=== PATIENT | male | born 1995 | race Caucasian/White ===

== ENCOUNTER 2022-12-28 13:11 | Emergency (ER) | payer BC, SELFPAY ==
[2022-12-28 13:11] VITALS: BP 143/105; PULSE 85; RESP 18; TEMP 36.1; O2SAT 97; BMI 31.7
--- NOTE | 2022-12-28 13:37 | ED.VIS.GI ---
HPI HPI - GI History of Present Illness Chief Complaint: Abd Pain Detail of Chief Complaint: Nausea, vomiting and diarrhea. Informant: patient Abdominal Pain/Flank Pain Onset: Days Context: Gradual Onset Timing: Continuous Current Severity: Mild Maximum Severity: Mild Nausea/Vomiting/Emesis GI Symptom: Positive for Nausea and Vomiting Onset: Days Severity: Mild Diarrhea/Melena/Hematochezia GI Symptom: Positive for Diarrhea and - (Small bright red blood streaks. Prior similar history.) Onset: Days Stool Quality: Positive for Loose Severity: Mild Associated Symptoms Associated Symptoms: Negative for Dysuria, Frequency, Hematuria or Urgency Narrative Narrative: 27-year-old male past medical history of reflux on omeprazole. States the last week he has had nausea, vomiting and diarrhea. He is able to hold food liquids down. Denies any fever. Thought initially he had food poisoning but when it continued he thought it may be something else. He has had episodes like this before. He is never had any significant GI work-up. He has never had upper or lower endoscopy. He has had bright red blood in his stool before. He is on no blood thinners. He has had no bruising or hematuria. No bloody nose. Prior similar symptoms: Yes Recent Illness/Hospitalization: No PFSH PFSH Medical History Anxiety GERD (gastroesophageal reflux disease) Seasonal allergies Home Medications fluoxetine 40 mg capsule mg 12/28/22 [History Last Taken Unknown] levocetirizine 5 mg tablet mg 12/28/22 [History Last Taken Unknown] omeprazole 40 mg capsule,delayed release mg 12/28/22 [History Last Taken Unknown] Allergy/AdvReac Type Severity Reaction Status Date / Time amoxicillin [From Augmentin] AdvReac Upset Verified 12/28/22 13:14 Stomach cefaclor [From Ceclor] AdvReac Upset Verified 12/28/22 13:14 Stomach clavulanic acid AdvReac Upset Verified 12/28/22 13:14 [From Augmentin] Stomach Social History Smoking Status: Former smoker ROS ROS ED ROS Narrative Nausea, vomiting and diarrhea. Review of Systems ROS Unobtainable: Denies due to encephalopathy Constitutional Constitutional ED: Denies chills or fever(s) ENT ENT ED: Denies ear pain Cardiovascular Cardiovascular: Denies chest pain Respiratory/Chest Respiratory/Chest: Denies cough or dyspnea Gastrointestinal Gastrointestinal: Reports diarrhea, nausea and vomiting; Denies abdominal pain, constipation or melena Genitourinary Genitourinary ED: Denies dysuria or hematuria Musculoskeletal Musculoskeletal: Denies arthralgias or back pain Integumentary Denies abscess or Abrasions Neurologic Neurologic: Denies headache(s) Psychiatric Psychiatric: Denies anxiety Endocrine Endocrinology: Denies polydipsia Hematologic/Lymphatic Hematologic/Lymphatic: Denies easy bleeding or easy bruising Allergic/Immunologic Allergic/Immunologic ED: Denies mouth swelling or tongue swelling EXAM Physical Exam Narrative Exam Narrative: 27-year-old male no acute distress. Vital signs stable afebrile. He does not look septic and nontoxic. He does not look dehydrated. H EENT exam unremarkable. Moist mucous members. Neck nontender no lymphadenopathy. Lungs clear to auscultation bilaterally. Heart regular rhythm rate about 80 no murmur. Abdomen soft, nontender, nondistended, normal bowel sounds, no peritoneal signs. No hernia nor mass. No distention. He is completely nontender at this time. Moving all 4 extremities. Nontender no edema. Back normal. Neurologic exam awake alert no focal motor deficits. Very benign exam. Const Vital Signs: 12/28/22 13:11 Temperature 97.0 F L Temperature Source Temporal Pulse Rate 85 Respiratory Rate 18 Blood Pressure 143/105 H Blood Pressure Mean 117 Pulse Ox 97 Oxygen Delivery Method Room Air Positive well nourished and well developed; Negative for cachectic, contractures or unkempt General Appearance ED: well developed and NAD; Negative for unkempt, cachectic, contractures or pallor Nutritional Appearance: Negative for cachectic HEENT Reports moist mucous membranes; Denies dry mucous membranes normocephalic and atraumatic; Negative for trauma or tenderness Mouth ED: No dry mucous membranes Mouth: No dry mucous membranes Eyes PERRL and EOMs intact bilaterally General Eye ED: Negative for pale conjunctiva, scleral icterus or other Neck no lymphadenopathy, supple and no JVD General: Negative for tenderness Carotids: Negative for other Lymph Lymphatic: Negative for other Resp normal respiratory effort and clear to auscultation bilaterally Effort and Inspection: Negative for respiratory distress, retractions or pain with movement Auscultation: Negative for rales, rhonchi or wheezes Cardio regular rate, regular rhythm, S1 normal heart sound, S2 normal heart sound and no murmurs Rate: Negative for bradycardia or tachycardic Rhythm: Negative for abnormal rhythm GI non-tender, non-distended and no masses Inspection: Negative for abdominal distention Auscultation: normoactive bowel sounds Palpation: soft; Negative for tender, guarding, rigid, hepatomegaly, splenomegaly, hernia, mass, pulsatile mass or rebound tenderness present Back/Spine no CVA tenderness General Back: Negative for CVA tenderness Cervical Spine: Negative for cervical spine tenderness Thoracic Spine / Upper Back: Negative for thoracic spinal tenderness Lumbar Spine / Lower Back: Negative for lumbar spinal tenderness Coccyx: Negative for other Extremity General Extremety ED: Negative for edema or tenderness General Extremity: Negative for edema Neuro CN's II-XII intact bilaterally and moves all extremities Sensorium / Orientation: alert, oriented to person, oriented to place and oriented to time; Negative for orientation impaired, confused, lethargic or stuporous Motor Exam: strength 5/5 throughout Psych mental status grossly normal and thought process normal Appearance: Negative for unkempt Attitude: No agitated Mood & Affect: Negative for depressed, anxious or tearful Skin no wounds General Skin Exam: Negative for jaundice or pallor Lesions: No no lesions Rashes: No no rashes Trauma: Negative for abrasion Nails: Negative for discolored MDM MDM MDM Narrative Medical decision making narrative: 27-year-old male with nausea vomiting diarrhea and intermittent bright red blood mixed with stools. This could be from internal hemorrhoids or polyps. Could be inflammatory bowel disease. We will do screening labs. He is clinically not dehydrated. I gave him a glass of water he is able to drink it does not anything for nausea at this time. Most likely will be discharged home with outpatient follow-up. Repeat exam patient doing well at 2:35 PM. Abdomen benign. He will be discharged home with outpatient follow-up. He continues to have diarrhea and intermittent blood-tinged stool he may need colonoscopy. Lab Data Attestation: I reviewed the patient's lab results. Lab results narrative: CBC unremarkable white count 8.9. H&H of 17.7 and 49. Platelets 280. She is unremarkable gap at 9. Normal BUN and creatinine. Liver enzymes are unremarkable with AST slightly elevated at 50 and ALT is 150. Lipase is normal at 37. Labs: Laboratory Results - last 24 hr 12/28/22 12/28/22 13:40 13:40 WBC 8.9 RBC 6.15 Hgb 17.7 H Hct 49.9 MCV 81.1 MCH 28.8 MCHC 35.5 RDW Std Deviation 35.1 RDW Coeff of Sarah 12.0 Plt Count 280 MPV 9.5 Immature Gran % (Auto) 0.700 Neut % (Auto) 52.6 Lymph % (Auto) 36.3 [place] % (Auto) 7.9 Eos % (Auto) 1.8 Baso % (Auto) 0.7 Absolute Neuts (auto) 4.7 Absolute Lymphs (auto) 3.21 Nucleated RBC % 0 Sodium 137 Potassium 3.8 Chloride 104 Carbon Dioxide 24.0 Anion Gap 9 BUN 15 Creatinine 0.99 Estim Creat Clear Calc 110.10 Est GFR (MDRD) Af Amer 114 Est GFR (MDRD) Non-Af 94 BUN/Creatinine Ratio 15.1 Glucose 93 Calcium 9.4 Total Bilirubin 0.90 AST 50 H ALT 150 H Alkaline Phosphatase 77 Total Protein 7.9 Albumin 4.3 Globulin 3.6 Albumin/Globulin Ratio 1.2 Lipase 37 Discharge Plan Triage Chief Complaint: Abd Pain ED Provider: Braeden Aleman Dx/Rx/DC Orders Clinical Impression: Diarrhea Instructions: ED Diarrhea, Unknown Cause Prescriptions: No Action fluoxetine 40 mg capsule 40 mg PO DAILY Label Comments: TAKE 1 CAPSULE BY MOUTH ONCE DAILY FOR 30 DAYS omeprazole 40 mg capsule,delayed release(DR/EC) 40 mg PO DAILY levocetirizine 5 mg tablet 5 mg PO DAILY Label Comments: TAKE 1 TABLET BY MOUTH EVERY DAY AT BEDTIME FOR 30 DAYS Primary Care Provider: Faisal Kovacs NP Referrals: Antoine Jrarell DO [Med Staff - Active Staff] - 10-14 Days if not better Faisal Kovacs [employer] MANAGER, [employer] MANAGER-C [Primary Care Provider] - 1 Week if not improving Activity Restrictions/Additional Instructions: Plenty of fluids and rest. Follow-up with your primary care provider if not improving If you continue to have diarrhea specifically if you continue to have bloody diarrhea you may need further evaluation by a GI doctor or even a colonoscopy to be evaluated for causes of chronic diarrhea and or bleeding. This could be from internal hemorrhoids, or polyps or even inflammatory bowel disease. He would need further evaluation. Disposition Disposition: Home, Self Care
[2022-12-28 13:50] LABS: Absolute Lymphocyte Count 3.21 X10^3/uL (0.83-4.51); Absolute Neutrophil Count 4.7 X10^3/uL (2.0-7.7); Basophil# 0.06 X10^3/uL; Basophil% 0.7 % (0-1); Eosinophil# 0.16 X10^3/uL; Eosinophils% 1.8 % (0-5); Hematocrit 49.9 % (40-54); Hemoglobin 17.7 g/dL (13.0-16.5); Lymphocyte # 3.21 X10^3/ul (0.83-4.51); Lymphocyte % 36.3 % (19-41); Mean Corp Hgb Conc 35.5 g/dL (32-36); Mean Corpuscular Hgb 28.8 pg (27.0-32.0); Mean Corpuscular Volume 81.1 fL (80-94); Mean Platelet Vol. 9.5 fl (6.2-12.0); Monocyte% 7.9 % (0-10); NRBC Flagged by Analyzer 0 % (0-5); Neutrophil # 4.66 X10^3/uL (2.7-7.7); Neutrophil % 52.6 % (47-70); Platelet Count 280 K/mm3 (150-450); RBC Distribution Width SD 35.1 fl (35.1-43.9); Red Blood Count 6.15 M/mm3 (4.6-6.2); White Blood Count 8.9 K/mm3 (4.4-11.0)
[2022-12-28 14:06] LABS: ALB/GLOB Ratio 1.2 RATIO (0.9-2.4); AST(SGOT) 50 U/L (15-37); Alanine Aminotransfer ALT/SGPT 150 U/L (16-61); Albumin, Serum 4.3 g/dL (3.2-5.0); Alkaline Phosphatase 77 U/L (45-117); Anion Gap 9 (5-15); BUN 15 mg/dL (7-18); BUN/Creat Ratio 15.1 RATIO (10-20); Calcium,Total 9.4 mg/dL (8.5-10.1); Chloride 104 mmol/L (98-107); Creatinine, Serum 0.99 mg/dL (0.70-1.30); EST Glomerular Filtration Rate 94 mL/min (>60); Est Glom Filt Rate - Afr Amer 114 mL/min (>60); Globulin 3.6 g/dL (2.2-4.2); Glucose 93 mg/dL (74-106); Lipase 37 U/L (13-75); Potassium 3.8 mmol/L (3.5-5.1); Protein, Total 7.9 g/dL (6.4-8.2); Sodium Level 137 mmol/L (136-145)
[2022-12-28 15:11] VITALS: RESP 18
== END 2022-12-28 15:13 | disposition home or self-care (01) ==
PROVIDERS: Emergency Provider Emergency Medicine; PCP Nurse Practitioner Family; Visit Provider Emergency Medicine
DX: R19.7 Diarrhea, unspecified (principal); K21.9 Gastro-esophageal reflux disease without esophagitis; Z87.891 Personal history of nicotine dependence; Z79.899 Other long term (current) drug therapy
CPT/HCPCS: 80053; 83690; 85025; 99283

== ENCOUNTER → 2023-04-11 | Outpatient (CLI) | payer BC, SELFPAY ==
--- NOTE | 2023-04-11 07:53 | US_ITS ---
STUDY: ABDOMINAL ULTRASOUND - RIGHT UPPER QUADRANT REASON FOR VISIT: Male, 28 years old elevated lft''s TECHNIQUE: Ultrasound evaluation of the right upper quadrant was performed with real-time and static lane-scale imaging. TECHNICAL QUALITY: Adequate. COMPARISON: None. FINDINGS: Liver: The liver measures 16.9 cm. There is increased echogenicity consistent with fatty infiltration. The bile ducts are within normal limits. There is hepatic color flow. The direction of portal flow is hepatopetal. There is no demonstrated mass lesion. Gallbladder: Normal distended gallbladder. The gallbladder wall measures 3.0 mm. There is a negative sonographic Moya''s sign. There is no pericholecystic fluid. There are no gallstones. Common Bile Duct (C.B.D.): The common bile duct measures 3.0 mm. Pancreas: Normal size of the head, body of the pancreas. The tail portion is obscured due to overlying bowel gas. There is normal echogenicity of the pancreas. There is no demonstrated pancreatic mass or cyst. Right Kidney: Normal size of the right kidney. The right kidney measures 11.5 cm x 6.3 cm x 5.7 cm. Normal renal cortex. The right cortex measures 2.2 cm. There is no demonstrated renal mass or cyst. There is no right hydronephrosis. IMPRESSION: Fatty infiltration of the liver. Electronically Signed: Henrry Govea MD at 16:00 EDT , STUDY: ABDOMINAL ULTRASOUND - ELASTOGRAPHY REASON FOR VISIT: Male, 28 years old. Elevated liver function tests. TECHNIQUE: Liver stiffness measurements were obtained on a Wagon 85 ultrasound machine using a CA 1-7 probe following the SRU guidelines. 3 measurements were obtained using a 2-D-SWE method. TheIQR/M was 13% suggesting a quality data set. TECHNICAL QUALITY: Adequate. COMPARISON: Comparison is made with prior study done earlier in the day. FINDINGS: Liver: There is no demonstrated mass lesion. Median liver stiffness measured 4.5 kPa. Abdomen: There is no demonstrated mass lesion. US/Abdomen Limited IMPRESSION: Liver stiffness measures 4.5 kPa compatible with FO (Normal) Metavir score. Electronically Signed: Henrry Govea MD at 16:01 EDT ,
== END | disposition home or self-care (01) ==
LOC: US 07:53
PROVIDERS: PCP Nurse Practitioner Family; Referring Provider Internal Medicine Gastroenterology; Visit Provider Internal Medicine Gastroenterology
DX: R11.2 Nausea with vomiting, unspecified (principal); R19.7 Diarrhea, unspecified
CPT/HCPCS: 76705; 76981

== ENCOUNTER 2023-05-28 11:31 | Day surgery (SDC) | payer BC, SELFPAY ==
[2023-05-28] VITALS (7 sets, daily range): BP systolic 107–144; BP diastolic 58–86; PULSE 62–68; RESP 16–18; TEMP 36.5–36.9; O2SAT 97–99; BMI 33.5
--- NOTE | 2023-05-28 | COLBX_PTH ---
PATIENT: JOYCE BRISCOE LOC: EN U#:[id number] AGE/SX: 28/M ROOM: RE05/28/[address]: Dr. Antoine Jarrell DO : 1995 BED: DIS: 05/28/2023 SPEC #: [id number] RECD: 05/28/23 15:15 STATUS: [place] KAL #: [id number] SCOTT: 05/28/23 00:[address]: Antoine Jarrell DEPT: SURGICAL PATHOLOGY RECD BY: Jose Luis Jarvis ENTERED: 05/29/23 10:00 SP TYPE: COLON BX OTHR DR: Faisal Kovacs, BLUEPRINT MACHINE OPERATOR-C Tissues: A - Duodenum, NOS B - Esophagus, NOS C - Ileum, NOS D - COLON BIOPSY Procedures: Special Stain Group II Surgery Specimen Level IV Alcian Blue/PAS (control) HEADER OPERATION: Colonoscopy, EGD, biopsy PRE-OP DIAGNOSIS: Nausea, vomiting, diarrhea TISSUE SUBMITTED: A - Duodenum biopsy, B - Distal esophagus biopsy, C - Terminal ileum biopsy, D - Random colonic biopsy MICROSCOPIC DIAGNOSIS A. Duodenum, biopsy: No pathologic change. B. Distal esophagus, biopsy: Gastroesophageal junctional mucosa with mild chronic inflammation. No evidence of goblet cell metaplasia. See comment. C. Terminal ileum, biopsy: No pathologic change. D. Colon, random biopsy: No pathologic change. AM:shemar 05/30/2023 COMMENT B. Alcian blue/PAS stain with matched control supports the above diagnosis. MICROSCOPIC DESCRIPTION Slides are reviewed. GROSS DESCRIPTION A - Received in fixative is one container labeled with the patient's name and designated duodenum biopsy. The specimen consists of two irregular fragments of light aguilar soft tissue that in aggregate measure 0.8 x 0.3 x 0.1 cm. The specimen is totally submitted in one cassette. B - Received in fixative is one container labeled with the patient's name and designated distal esophagus biopsy. The specimen consists of multiple irregular fragments of light aguilar soft tissue that in aggregate measure 1.2 x 0.5 x 0.1 cm. The specimen is totally submitted in one cassette. C - Received in fixative is one container labeled with the patient's name and designated terminal ileum. The specimen consists of two irregular fragments of light aguilar soft tissue that in aggregate measure 1.0 x 0.5 x 0.1 cm. The specimen is totally submitted in one cassette. D - Received in fixative is one container labeled with the patient's name and designated random colon biopsy. The specimen consists of multiple irregular fragments of light aguilar soft tissue that in aggregate measure 2.0 x 1.0 x 0.1 cm. The specimen is totally submitted in one cassette. / AM:shemar 05/29/2023 TC:3 CPT: 91364 x4, 51028
[2023-05-28] MEDS: Lactated Ringers 1,000 ML 15 ML IV (12:19)
--- NOTE | 2023-05-28 13:07 | HP.PCM_ITS ---
History and Physical Date of Admission: 05/28/23 27 M who presents to the office today for a consult. [facility] ED 12.28.22 with N/V/D with blood in stool for the last week with intermittent presentation in the past without GI workup or endoscopy.?Biochemical?CBC, CMP, lipase without pertinent abnormality.?AST H50- ALT H150- AP77? PCP OV 01.03.23 as ED and chronic condition f/u with ADHD, generalized anxiety, GERD with presumptive PUD diagnosis managed with omeprazole 40mg and dicyclomine PRN.? FH- Grandma- stomach cancer Today reports that his symptoms are random and sporadic. States that he has had only one episode of blood in stool since his ED visit. Continues to have nausea and diarrhea. Denies any vomiting. States that he is taking the omeprazole 40 mg QAM and Famotidine QHS and that has been helpful. States that he did not notice a difference with dicyclomine. States that although his symptoms are still there they are not debilitating. States that symptoms are aggravated by spicy food and salads. ROS Const Constitutional: No fatigue, fever(s), frequent falls, headache(s) or weight change ENT ENT: No headache(s) or difficulty swallowing Cardio Cardiology: No leg pain with exertion Gastro GI: Positive for diarrhea and nausea/dyspepsia; No abdominal pain, bloating, change in bowel habits, constipation, heartburn, difficulty swallowing, Vomiting blood/hematemesis, Blood in stool or vomiting Musc Musculoskeletal: No abnormal gait, joint pain, back pain, joint swelling, muscle cramps, muscle weakness, numbness, stiffness, tingling, Arthritis, sciatica, leg pain at night or leg pain with exertion Skin Skin: No dry skin, lesions, itchy eyes or rash Neuro Neurology: No abnormal gait, dizziness, frequent falls, headache(s), numbness, tingling, tremor(s), Increased tone in limbs, paralysis or seizures Psych Psychiatric: No anxiety, No depression, No paranoia, No Behavioral Problems, No Compulsive Behavior, No hyperactivity, No inattentiveness, No obsessions/compulsions, No Temper Tantrums and No suicidal ideation Endo Endocrine: No fatigue or weight change Aller/Imm Allergy/Immunologic: No itchy eyes Poli/Lymp Hematologic/Lymphatic: No easy bleeding or easy bruising Exam Const General: cooperative and comfortable Nutritional Appearance: average body habitus and well nourished [facility] Head: normal to inspection Ears: hearing grossly normal bilaterally Nose: external nose normal Face and sinus: normal facial exam Mouth: oral mucosae normal Throat: posterior oropharynx normal Eyes General: appearance normal, both eyes and all related structures Neck Neck: normal visual inspection Chest Chest palpation & inspection: normal inspection of the chest and normal palpation of entire chest wall Resp Effort & Inspection: normal respiratory effort Auscultation: Bilateral: Clear to Auscultation Cardio Palpation: normal PMI Rate: regular rate Rhythm: regular rhythm GI Inspection: normal to inspection Auscultation: normal bowel sounds Percussion: normal to percussion Palpation: no hepatosplenomegaly Skin General: no rashes or lesions noted Neuro General: patient alert Extrem General: normal to inspection Psych Affect: normal affect Quality Reporting Tobacco Screening ([facility] 138) Smoking Status: Former smoker Assessment and Plan Assessment and Plan (1) Nausea & vomiting: Status: Acute Qualifiers: Vomiting type: unspecified Qualified Code(s): R11.2 - Nausea with vomiting, unspecified (2) Diarrhea: Status: Inactive Qualifiers: Diarrhea type: functional diarrhea Qualified Code(s): K59.1 - Functional diarrhea Plan: 27-year-old gentleman with a several year history of intermittent nausea and abdominal pain. It is progressed to intermittent diarrhea. His weight has been stable. He denies any hematochezia. He does not take any blood thinners. He has no family members with inflammatory bowel disease. He presented to the ED in December 2022 with worsening nausea vomiting. He was noted to have an increased hemoglobin to 17.7. His white blood cell count was normal at 6.3 and his platelet count was normal at 235. He said he used to have a problem with alcohol but he does not drink alcohol anymore. He does also complain of some pain in bilateral knees with consumption of alcohol. Also noted was a increase in AST and ALT on his ER visit. His a ST was 58 and his ALT was 150. He denied any alcohol prior to that visit. His urine was not checked for infection previously. Differential diagnosis does include celiac disease, inflammatory bowel disease, ANCA associated vasculitis, marijuana hyperemesis, gastroparesis. He will undergo an upper and lower endoscopy to evaluate his upper or lower GI tract. He was explained alternatives, risk, benefits including not withstanding bl eeding, infection, sepsis, perforation, need for emergent surgery . He will have an ASA of 2. Orders: Orders Ferritin Today R11.2 - Nausea with vomiting, unspecified, R19.7 - Diarrhea, unspecified Haptoglobin Today R11.2 - Nausea with vomiting, unspecified, R19.7 - Diarrhea, unspecified Retic Panel Count Today R11.2 - Nausea with vomiting, unspecified, R19.7 - Diarrhea, unspecified MONICA + Protein Elect, Serum Today R11.2 - Nausea with vomiting, unspecified, R19.7 - Diarrhea, unspecified Iron Binding Capacity,Total Today R11.2 - Nausea with vomiting, unspecified, R19.7 - Diarrhea, unspecified Iron Today R11.2 - Nausea with vomiting, unspecified, R19.7 - Diarrhea, unspecified LDH Today R11.2 - Nausea with vomiting, unspecified, R19.7 - Diarrhea, unspecified CBC W/Diff, Automated Today R11.2 - Nausea with vomiting, unspecified, R19.7 - Diarrhea, unspecified ANCA Today R11.2 - Nausea with vomiting, unspecified, R19.7 - Diarrhea, unspecified Celiac Disease Profile Today R11.2 - Nausea with vomiting, unspecified, R19.7 - Diarrhea, unspecified Comprehensive Metabolic Profil Today R11.2 - Nausea with vomiting, unspecified, R19.7 - Diarrhea, unspecified CRP Today R11.2 - Nausea with vomiting, unspecified, R19.7 - Diarrhea, unspecified Erythrocyte Sed Rate Today R11.2 - Nausea with vomiting, unspecified, R19.7 - Diarrhea, unspecified Immunoglobulin A Today R11.2 - Nausea with vomiting, unspecified, R19.7 - Diarrhea, unspecified Immunoglobulin E Today R11.2 - Nausea with vomiting, unspecified, R19.7 - Diarrhea, unspecified Immunoglobulin G Today R11.2 - Nausea with vomiting, unspecified, R19.7 - Diarrhea, unspecified Immunoglobulin M Today R11.2 - Nausea with vomiting, unspecified, R19.7 - Diarrhea, unspecified Miscellaneous Lab Procedure Today R11.2 - Nausea with vomiting, unspecified, R19.7 - Diarrhea, unspecified Amylase Today R11.2 - Nausea with vomiting, unspecified, R19.7 - Diarrhea, unspecified Lipase Today R11.2 - Nausea with vomiting, unspecified, R19.7 - Diarrhea, unspecified JULIETH Comprehensive Panel Today R11.2 - Nausea with vomiting, unspecified, R19.7 - Diarrhea, unspecified Prothrombin Time w/INR Today R11.2 - Nausea with vomiting, unspecified, R19.7 - Diarrhea, unspecified Abdomen Limited Today R11.2 - Nausea with vomiting, unspecified, R19.7 - Diarrhea, unspecified Elastography Parenchyma/Organ Today R11.2 - Nausea with vomiting, unspecified, R19.7 - Diarrhea, unspecified Anti-Smooth Muscle ABS Today R11.2 - Nausea with vomiting, unspecified Anti-Mitochondrial AB Today R11.2 - Nausea with vomiting, unspecified Hepatitis Panel Acute Today R11.2 - Nausea with vomiting, unspecified CPK Total, Creatine Kinase Today R11.2 - Nausea with vomiting, unspecified I have examined the patient and the H&P has been reviewed. There are no clinical changes since date of exam.
--- NOTE | 2023-05-28 13:51 | OP.CCLET_ITS ---
05/28/2023 Faisal Kovacs Re : Colonoscopy procedure for Wilbur An Dear Bethanie This procedure was performed on Sunday, May 28, 2023. My impressions and recommendations are as follows: Impressions : - Hemorrhoids found on perianal exam. - Congested mucosa at the hepatic flexure, in the ascending colon and in the cecum. Biopsied. - Congested mucosa in the terminal ileum. Biopsied. Recommendations : - Discharge patient to home. - Resume previous diet. - Continue present medications. - Await pathology results. - Repeat colonoscopy for surveillance based on pathology results. My findings are described in the full procedure note, which is enclosed. If I can be of further assistance, please feel free to contact me at . Sincerely, Antoine Jarrell, 05/28/2023 1:51:29 PM This report has been signed electronically.
--- NOTE | 2023-05-28 13:51 | OP.CCLET_ITS ---
05/28/2023 Faisal Kovacs Re : Upper GI endoscopy procedure for Wilbur An Dear Bethanie This procedure was performed on Sunday, May 28, 2023. My impressions and recommendations are as follows: Impressions : - LA Grade A reflux esophagitis with no bleeding. Biopsied. - Medium-sized hiatal hernia. - Erythematous duodenopathy. Biopsied. Recommendations : - Discharge patient to home. - Resume previous diet. - Continue present medications. - Await pathology results. My findings are described in the full procedure note, which is enclosed. If I can be of further assistance, please feel free to contact me at . Sincerely, Antoine Jarrell, 05/28/2023 1:51:04 PM This report has been signed electronically.
--- NOTE | 2023-05-28 13:51 | OP.COLON_ITS ---
Patient Name: Wilbur An Procedure Date: 05/28/2023 1:06 PM Date of : 1995 Age: 28 Procedure: Colonoscopy Indications: Chronic diarrhea Providers: Antoine aJrrell DO Referring MD: Faisal Kovacs Medicines: Monitored Anesthesia Care Patient Profile: This is a 28 year old male. Refer to note in patient chart for documentation of history and physical. Last Colonoscopy: none. The patient's first colonoscopy is today. Complications: No immediate complications. Procedure: Pre-Anesthesia Assessment: - Prior to the procedure, a History and Physical was performed, and patient medications and allergies were reviewed. The patient is competent. The risks and benefits of the procedure and the sedation options and risks were discussed with the patient. All questions were answered and informed consent was obtained. Patient identification and proposed procedure were verified by the physician in the pre-procedure area. Mental Status Examination: normal. Airway Examination: normal oropharyngeal airway and neck mobility. Respiratory Examination: clear to auscultation. CV Examination: normal. Prophylactic Antibiotics: The patient does not require prophylactic antibiotics. Prior Anticoagulants: The patient has taken no anticoagulant or antiplatelet agents. ASA Grade Assessment: II - A patient with mild systemic disease. After reviewing the risks and benefits, the patient was deemed in satisfactory condition to undergo the procedure. The anesthesia plan was to use monitored anesthesia care (MAC). Immediately prior to administration of medications, the patient was re-assessed for adequacy to receive sedatives. The heart rate, respiratory rate, oxygen saturations, blood pressure, adequacy of pulmonary ventilation, and response to care were monitored throughout the procedure. The physical status of the patient was re-assessed after the procedure. After I obtained informed consent, the scope was passed under direct vision. Throughout the procedure, the patient's blood pressure, pulse, and oxygen saturations were monitored continuously. The pediatric colonoscope was introduced through the anus and advanced to the cecum, identified by appendiceal orifice and ileocecal valve. The colonoscopy was performed without difficulty. The patient tolerated the procedure well. The quality of the bowel preparation was good. The terminal ileum, ileocecal valve, appendiceal orifice, and rectum were photographed. Scope In: 1:22:28 PM Scope Out: 1:37:53 PM Total Procedure Duration Time 0 hours 15 minutes 25 seconds Findings: The perianal and digital rectal examinations were normal. Hemorrhoids were found on perianal exam. An area of mildly congested mucosa was found at the hepatic flexure, in the ascending colon and in the cecum. Biopsies were taken with a cold forceps for histology. Verification of patient identification for the specimen was done. Estimated blood loss was minimal. A localized area of the terminal ileum was congested. Biopsies were taken with a cold forceps for histology. Verification of patient identification for the specimen was done. Estimated blood loss was minimal. Impression: - Hemorrhoids found on perianal exam. - Congested mucosa at the hepatic flexure, in the ascending colon and in the cecum. Biopsied. - Congested mucosa in the terminal ileum. Biopsied. Recommendation: - Discharge patient to home. - Resume previous diet. - Continue present medications. - Await pathology results. - Repeat colonoscopy for surveillance based on pathology results. Procedure Code(s): --- Professional --- 61891, Colonoscopy, flexible; with biopsy, single or multiple CPT copyright 2021 [employer]. All rights reserved. The codes documented in this report are preliminary and upon preparation supervisor review may be revised to meet current compliance requirements. Antoine Jarrell DO 05/28/2023 1:51:29 PM This report has been signed electronically. Number of Addenda: 0 Note Initiated On: 05/28/2023 1:06 PM
--- NOTE | 2023-05-28 13:51 | OP.EGD_ITS ---
Patient Name: Wilbur An Procedure Date: 05/28/2023 1:44 PM Date of : 1995 Age: 28 Procedure: Upper GI endoscopy Indications: Epigastric abdominal pain Providers: Antoine Jarrell DO Referring MD: Faisal Kovacs Medicines: Monitored Anesthesia Care Patient Profile: This is a 28 year old male. Refer to note in patient chart for documentation of history and physical. Last Colonoscopy: none. The patient's first colonoscopy is today. Complications: No immediate complications. Procedure: Pre-Anesthesia Assessment: - Prior to the procedure, a History and Physical was performed, and patient medications and allergies were reviewed. The patient is competent. The risks and benefits of the procedure and the sedation options and risks were discussed with the patient. All questions were answered and informed consent was obtained. Patient identification and proposed procedure were verified by the physician in the pre-procedure area. Mental Status Examination: normal. Airway Examination: normal oropharyngeal airway and neck mobility. Respiratory Examination: clear to auscultation. CV Examination: normal. Prophylactic Antibiotics: The patient does not require prophylactic antibiotics. Prior Anticoagulants: The patient has taken no anticoagulant or antiplatelet agents. ASA Grade Assessment: II - A patient with mild systemic disease. After reviewing the risks and benefits, the patient was deemed in satisfactory condition to undergo the procedure. The anesthesia plan was to use monitored anesthesia care (MAC). Immediately prior to administration of medications, the patient was re-assessed for adequacy to receive sedatives. The heart rate, respiratory rate, oxygen saturations, blood pressure, adequacy of pulmonary ventilation, and response to care were monitored throughout the procedure. The physical status of the patient was re-assessed after the procedure. After obtaining informed consent, the endoscope was passed under direct vision. Throughout the procedure, the patient's blood pressure, pulse, and oxygen saturations were monitored continuously. The pediatric colonoscope was introduced through the mouth, and advanced to the second part of duodenum. The upper GI endoscopy was accomplished without difficulty. The patient tolerated the procedure well. Scope In: 1:13:18 PM Scope Out: 1:18:30 PM Total Procedure Duration Time 0 hours 5 minutes 12 seconds Findings: LA Grade A (one or more mucosal breaks less than 5 mm, not extending between tops of 2 mucosal folds) esophagitis with no bleeding was found 37 to 38 cm from the incisors. Biopsies were taken with a cold forceps for histology. Verification of patient identification for the specimen was done. Estimated blood loss was minimal. A medium-sized hiatal hernia was present. No other significant abnormalities were identified in a careful examination of the stomach. Patchy mildly erythematous mucosa without active bleeding and with no stigmata of bleeding was found in the duodenal bulb. Biopsies were taken with a cold forceps for histology. Verification of patient identification for the specimen was done. Estimated blood loss was minimal. Impression: - LA Grade A reflux esophagitis with no bleeding. Biopsied. - Medium-sized hiatal hernia. - Erythematous duodenopathy. Biopsied. Recommendation: - Discharge patient to home. - Resume previous diet. - Continue present medications. - Await pathology results. Procedure Code(s): --- Professional --- 27133, Esophagogastroduodenoscopy, flexible, transoral; with biopsy, single or multiple CPT copyright 2021 [employer]. All rights reserved. The codes documented in this report are preliminary and upon saw edge fuser circular review may be revised to meet current compliance requirements. Antoine Jarrell DO 05/28/2023 1:51:04 PM This report has been signed electronically. Number of Addenda: 0 Note Initiated On: 05/28/2023 1:44 PM
== END 2023-05-28 14:24 | disposition home or self-care (01) ==
LOC: EN 11:33 → AC 11:40
PROVIDERS: PCP Nurse Practitioner Family; Referring Provider Nurse Practitioner Family; Visit Provider Internal Medicine Gastroenterology
PROC: 0DJD8ZZ Inspection of Lower Intestinal Tract, Via Natural or Artificial Opening Endoscopic (ICD-10-PCS; CPT 45378; principal; 2023-05-28 12:55)
DX: K44.9 Diaphragmatic hernia without obstruction or gangrene (principal); K64.9 Unspecified hemorrhoids; K63.89 Other specified diseases of intestine; K21.00 Gastro-esophageal reflux disease with esophagitis, without bleeding; K59.1 Functional diarrhea; K31.89 Other diseases of stomach and duodenum; F41.9 Anxiety disorder, unspecified; F90.9 Attention-deficit hyperactivity disorder, unspecified type; F12.90 Cannabis use, unspecified, uncomplicated; Z79.899 Other long term (current) drug therapy; Z80.0 Family history of malignant neoplasm of digestive organs; Z87.891 Personal history of nicotine dependence
CPT/HCPCS: 45380; 43239; 88305; 88313; J7120; J2405

== ENCOUNTER → 2023-08-16 | Outpatient (CLI) | payer BC, SELFPAY ==
[2023-08-16 16:45] LABS: Absolute Lymphocyte Count 3.18 X10^3/uL (0.83-4.51); Absolute Neutrophil Count 4.5 X10^3/uL (2.0-7.7); Basophil# 0.07 X10^3/uL; Basophil% 0.8 % (0-1); Eosinophil# 0.16 X10^3/uL; Eosinophils% 1.9 % (0-5); Hemoglobin 16.2 g/dL (13.0-16.5); Lymphocyte # 3.18 X10^3/ul (0.83-4.51); Lymphocyte % 37.5 % (19-41); Mean Corp Hgb Conc 33.8 g/dL (32-36); Mean Corpuscular Hgb 28.6 pg (27.0-32.0); Mean Corpuscular Volume 84.7 fL (80-94); Mean Platelet Vol. 9.7 fl (6.2-12.0); Monocyte# 0.55 X10^3/uL; Monocyte% 6.5 % (0-10); NRBC Flagged by Analyzer 0 % (0-5); Neutrophil # 4.49 X10^3/uL (2.7-7.7); Neutrophil % 52.8 % (47-70); Platelet Count 328 K/mm3 (150-450); RBC Distribution Width CV 12.3 % (11.6-14.6); RBC Distribution Width SD 37.6 fl (35.1-43.9); RET-HE 31.7 pg (30-35); Red Blood Count 5.67 M/mm3 (4.6-6.2); Reticulocyte Count 1.54 % (0.5-1.5); White Blood Count 8.5 K/mm3 (4.4-11.0)
[2023-08-16 16:57] LABS: Erythrocyte Sedimentation Rate 2 mm/hr (0-20)
[2023-08-16 17:14] LABS: Amphetamine Urine VISTA NEGATIVE (<1000 ng/mL); Barbiturate Urine VISTA NEGATIVE (< 200 ng/mL); Benzodiazepine Urine VISTA NEGATIVE (< 200 ng/mL); Cocaine Urine VISTA NEGATIVE (< 300 ng/mL); Ecstacy Urine VISTA POSITIVE (< 500 ng/mL); Methadone Urine VISTA NEGATIVE (< 300 ng/mL); PCP Urine VISTA NEGATIVE (< 25 ng/mL); THC Urine VISTA POSITIVE (< 50 ng/mL); Vista UDS pH Range 5
[2023-08-16 17:19] LABS: Prothrombin Time (Protime)PT. 13.5 SECONDS (11.7-14.9)
[2023-08-16 17:25] LABS: ALB/GLOB Ratio 1.3 RATIO (0.9-2.4); AST(SGOT) 31 U/L (15-37); Alanine Aminotransfer ALT/SGPT 84 U/L (16-61); Alkaline Phosphatase 61 U/L (45-117); Amylase 40 U/L (25-115); Anion Gap 9 (5-15); BUN 11 mg/dL (7-18); BUN/Creat Ratio 9.6 RATIO (10-20); CPK Total, Creatine Kinase 202 U/L (39-308); CRP < 2.90 mg/L (0.0-3.0); Calcium,Total 8.7 mg/dL (8.5-10.1); Chloride 109 mmol/L (98-107); Creatinine, Serum 1.15 mg/dL (0.70-1.30); EST Glomerular Filtration Rate 79 mL/min (>60); Est Glom Filt Rate - Afr Amer 96 mL/min (>60); Ferritin 76 ng/mL (26-388); Globulin 3.1 g/dL (2.2-4.2); Glucose 136 mg/dL (74-106); Iron 54 ug/dL (65-175); Iron Binding Capacity,Total 443 ug/dL (250-450); LDH 198 U/L (87-241); Lipase 35 U/L (13-75); Potassium 3.9 mmol/L (3.5-5.1); Protein, Total 7.1 g/dL (6.4-8.2); Sodium Level 140 mmol/L (136-145)
[2023-08-20 12:07] LABS: Anti-Centromere B Ab <0.2 AI (0.0-0.9); Anti-Chromatin <0.2 AI (0.0-0.9); Anti-Jo <0.2 AI (0.0-0.9); Anti-Mitochondrial AB <20.0 Units (0.0-20.0); Anti-Scleroderma-70 AB <0.2 AI (0.0-0.9); Anti-dsDNA Ab <1 IU/mL (0-9); RNP Ab <0.2 AI (0.0-0.9); SJOGREN'S Anti-SS-A test < 0.2 AI (0.0-0.9); SJOGREN'S Anti-SS-B test < 0.2 AI (0.0-0.9); Smith Ab <0.2 AI (0.0-0.9)
[2023-08-25 17:07] LABS: Albumin 3.8 g/dL (2.9-4.4); Alpha-1-Globulins 0.3 g/dL (0.0-0.4); Alpha-2-Globulins 0.7 g/dL (0.4-1.0); Anti-Smooth Muscle ABS 5 Units (0-19); Cytoplasmic Ab (C-ANCA) <1:20 titer (Neg:<1:20); Endomysial Antibody IgA Negative (Negative); Gamma Globulin 0.8 g/dL (0.4-1.8); HEPATITIS B SURFACE AG Negative (Negative); Haptoglobin 120 mg/dL (17-317); Hep C Antibodies Non Reactive (Non Reactive); Hepatitis A IgM Antibody Negative (Negative); Hepatitis B Core AB IgM Negative (Negative); Immunoglobulin A 67 mg/dL (90-386); Immunoglobulin E 19 IU/mL (6-495); Immunoglobulin G 729 mg/dL (603-1613); Immunoglobulin M 31 mg/dL (20-172); PROEL- TOTAL PROTEIN 6.7 g/dL (6.0-8.5); Perinuclear Ab (P-ANCA) <1:20 titer (Neg:<1:20); t-Transglutaminase IgA <2 U/mL (0-3)
== END | disposition home or self-care (01) ==
PROVIDERS: PCP Nurse Practitioner Family; Referring Provider Internal Medicine Gastroenterology; Visit Provider Internal Medicine Gastroenterology
DX: R11.2 Nausea with vomiting, unspecified (principal); R19.7 Diarrhea, unspecified
CPT/HCPCS: 36415; 80053; 80074; 80307; 82150; 82550; 82728; 82784; 82785; 83010; 83516; 83540; 83550; 83615; 83690; 84165; 85025; 85045; 85610; 85652; 86140; 86225; 86235; 86255; 86256; 86334

== ENCOUNTER → 2023-08-24 | Outpatient (CLI) | payer BC, SELFPAY ==
--- OUTSIDE RECORDS SUMMARY | 2023-08-24 07:35 | XMS RPT_ITS | CCD ---
Author Name Unknown Address [address] [place] [address] Organization [facility] Care Team Providers Care Orthodontic Technician Assistant Name Role Phone ALVARO WEBB (GRABIEL) Unavailable ALVARO Lunsford (GRABIEL) Unavailable RENALDO Ortega Unavailable Unavailable RENALDO RAWLS Unavailable Unavailable RENALDO RAWLS Unavailable Unavailable RENALDO RAWLS Unavailable Unavailable Allergies Allergy Classification Reported Allergen(s) Allergy Type Date of Onset Reaction(s) Facility (1 source) cefaclor; Translations: [CEFACLOR] Drug Allergy [facility] Repository (1 source) AMOXICILLIN-POT CLAVULANATE; Translations: [AMOXICILLIN-POT CLAVULANATE] Propensity to adverse reactions to drug (disorder) [facility] Repository Problems Problem Classification Problem Date Documented Da te Episodic/Chronic Abdominal pain (1 source) Epigastric pain; Translations: [Epigastric pain] Onset: 03-20-2018 Episodic Nausea and vomiting (1 source) Nausea; Translations: [Nausea] Onset: 03-20-2018 Episodic Results Test Name Value Interpretation Reference Range Facil ity Encounters Encounter Date Encounter Type Care Provider Facility Start: 06-26-2018 End: 06-27-2018 Patient encounter procedure RENALDO RAWLS [facility] Start: 06-11-2018 End: 06-12-2018 Patient encounter procedure RENALDO RAWLS [facility] Start: 03-20-2018 End: 03-21-2018 Patient encounter ALVARO JACOBSEN) [facility] Start: 03-19-2018 Patient encounter ALVARO [facility]LO[facility]RON[facility] Payers Date Payer Category Payer Unknown [id number] 1995 Unknown [id number] 1995 Unknown [id number] Summary Purpose Family History No Family History Records FoundNo Family History Records Found Advance Directives No Advanced Directives Records FoundNo Advanced Directives Records Found Additional Source Comments (unrecognized sect ion and content) No Status Records FoundNo Status Records Found INFORMATION SOURCE (unrecogn ized section and content) DATE CREATED AUTHOR AUTHOR'S ORGANIZ ATION 07/27/2018 [facility] ([place]) FOR RECORDS PERTAINING TO PATIENTS WHO ARE OR HAVE BEEN ENROLLED IN A CHEMICAL DEPENDENCY/SUBSTANCEABUSE PROGRAM, SOME INFORMATION MAY BE OMITTED. This clinical summary was aggregated from multiple sources. Caution should be exercised in using it in the provision of clinical care. This summary normalizes information from multiple sources, and as a consequence, information in this document may materially change the coding, format and clinical context of patient data. In addition, data may be omitted in some cases. CLINICAL DECISIONS SHOULD BE BASED ON THE PRIMARY CLINICAL RECORDS. [facility]. provides no warranty or guarantee of the accuracy or completeness of information in this document.
[2023-08-27 22:07] LABS: Pancreatic Elastase, Fecal 309 (>200)
[2023-08-30 16:09] LABS: Calprotectin, Stool 103 ug/g (0-120); Fats, Neutral Normal (.); Fats, Total Normal (.)
== END | disposition home or self-care (01) ==
LOC: LABSPEC 07:33
PROVIDERS: PCP Nurse Practitioner Family; Referring Provider Internal Medicine Gastroenterology; Visit Provider Internal Medicine Gastroenterology
DX: K59.1 Functional diarrhea (principal); R11.2 Nausea with vomiting, unspecified; K58.9 Irritable bowel syndrome, unspecified
CPT/HCPCS: 82653; 82705; 83630; 83993; 87177; 87209; 87329; 87506